=== PATIENT | female | born 1955 | race African-American/Black ===

== ENCOUNTER 2017-12-18 03:57 | Emergency (ER) | payer MEDICAID ==
[~2017-12-18] VITALS: Ht 152.4 cm; Wt 67.0 kg
[2017-12-18 04:15] VITALS: BP 138/76
== END 2017-12-18 06:51 | disposition left against medical advice (07) ==
LOC: ER 03:57
DX: M25.551 Pain in right hip (principal); Z53.21 Procedure and treatment not carried out due to patient leaving prior to being seen by health care provider